=== PATIENT | male | born 1950 | race Hispanic/Latino ===

== ENCOUNTER 2017-06-07 09:11 | Day surgery (SDC) | payer BC ==
[~2017-06-07 09:11] MED LIST: ANCEF/STERILE WATER 2 GM/20 ML IV NR
[2017-06-07] MEDS ORDERED: XYLOCAINE MPF 2% ONE (10:45)
[2017-06-07] MEDS ORDERED: SUBLIMAZE ONE (10:46)
[2017-06-07] MEDS ORDERED: DIPRIVAN 10 MG/ML IV ONE (10:46)
[2017-06-07] MEDS ORDERED: ZOFRAN IV PRN (10:48)
[2017-06-07] MEDS ORDERED: DILAUDID IV PRN (10:48)
--- NOTE | 2017-06-07 10:48 | Anesthesia Consultation ---
Anesthesia Consult and Med Hx Date of service: 06/07/17 - Airway Anesthetic Teeth Evaluation: Good ROM Head & Neck: Adequate Mental/Hyoid Distance: Adequate Mallampati Class: Class II Intubation Access Assessment: Probably Good - Pulmonary Exam CTA: Yes - Cardiac Exam Cardiac Exam: RRR - Pre-Operative Health Status ASA Pre-Surgery Classification: ASA3 Proposed Anesthetic Plan: General - Pulmonary Hx Smoking: Yes (DIPS TOBACCO NOW) Hx Sleep Apnea: Yes (DX SLEEP APNEA , NO CPAP) - Cardiovascular System Hx Hypertension: Yes (X 45 YRS) - Central Nervous System Hx Back Pain: Yes - Endocrine Hx Insulin Dependent Diabetes: Yes - Other Systems Hx Cancer: No Hx Obesity: Yes
--- NOTE | 2017-06-07 10:49 | Anesthesia Day of Surgery ---
Anesthesia Day of Surgery - Day of Surgery Patient Examined: Yes Patient H&P Reviewed: Yes Patient is NPO: Yes
[2017-06-07] MEDS ORDERED: VERSED IV NR (11:00)
[2017-06-07] MEDS ORDERED: NACL 0.9% 1000 ML 1,000 ML IV SCH (11:00)
[2017-06-07] MEDS ORDERED: PEPCID PO NR (11:00)
[2017-06-07] MEDS ORDERED: XYLOCAINE 1%/ EPI 1:100,000 INFILTRATI ONE ×2 (12:22→12:35)
[2017-06-07] MEDS ORDERED: MARCAINE 0.25% INFILTRATI ONE ×2 (12:22→12:55)
[2017-06-07] MEDS ORDERED: NACL 0.9% IR ONE (12:36)
[2017-06-07] MEDS ORDERED: ZOFRAN ONE (12:54)
--- NOTE | 2017-06-07 13:08 | Short Stay Summary ---
Short Stay Documentation Date of service: 06/07/17 - Allergies and Medications Current Medications: Allergies No Known Allergies Allergy (Verified 06/01/17 13:38) Home Medications Medication Instructions Recorded Confirmed Last Taken Type Aspirin [Adult Low Dose Aspirin EC] 81 mg PO DAILY 06/01/17 06/07/17 06/01/17 06 :00 History Dexlansoprazole [Dexilant] 60 mg PO QDAY 06/01/17 06/07/17 06/06/17 06:00 History Dicyclomine [Bentyl] 10 mg PO QID PRN 06/01/17 06/07/17 06/06/17 19:00 History Ferrous Gluconate [Fergon 325 MG 325 mg PO QDAY 06/01/17 06/07/17 06/06/17 19: 00 History tab] Hydrochlorothiazide [Hctz] 12.5 mg PO QDAY 06/01/17 06/07/17 06/06/17 06:00 History Insulin Glargine [Lantus] 50 unit SUB-Q QHS 06/01/17 06/07/17 06/05/17 19:00 History Insulin NPH/Regular [Novolin 70/30] 1 unit SUB-Q TID 06/01/17 06/07/17 06/06/17 06:15 History Lactobacillus Acidophilus 1 mg PO DAILY 06/01/17 06/07/17 06/06/17 06:00 History [Acidophilus Probiotic] Lisinopril [Zestril TAB] 40 mg PO QDAY 06/01/17 06/07/17 06/06/17 06:00 History Lovastatin [Altoprev] 40 mg PO QPM 06/01/17 06/07/17 06/06/17 06:00 History Metformin HCl [Glucophage] 1,000 mg PO BID 06/01/17 06/07/17 06/06/17 19:00 History Tamsulosin [Flomax] 0.4 mg PO QDAY 06/01/17 06/07/17 06/06/17 19:00 History Venlafaxine HCl [Venlafaxine HCl 300 mg PO DAILY 06/01/17 06/07/17 06/06/17 19: 00 History ER] amLODIPine [Norvasc] 5 mg PO DAILY 06/01/17 06/07/17 06/06/17 06:00 History glipiZIDE [Glucotrol] 5 mg PO BID 06/01/17 06/07/17 06/06/17 06:00 History Active Medications Cefazolin Sodium (Ancef/Sterile Water 2 Gm/20 Ml) 2 gm IV PREOP NR Stop: 06/07/17 23:59 Famotidine (Pepcid) 20 mg PO PREOP NR Stop: 06/07/17 23:59 Last Admin: 06/07/17 11:32 Dose: 20 mg Hydromorphone HCl (Dilaudid) 0.5 mg IV Q10MIN PRN PRN Reason: Pain , Severe (7-10) Stop: 06/07/17 23:59 Sodium Chloride (Nacl 0.9% 1000 Ml) 1,000 mls @ 75 mls/hr IV DIRECT VITO Last Admin: 06/07/17 11:32 Dose: 75 mls/hr Midazolam HCl (Versed) 2 mg IV PREOP NR Stop: 06/07/17 23:59 Last Admin: 06/07/17 11:33 Dose: 2 mg Short Stay Discharge Plan Activity: no restrictions, advance as tolerated Weight Bearing Status: Full Weight Bearing Diet: regular Wound: keep clean and dry, per your surgeon's advice Additional Instructions: follow DC instruction sheet and start PT tomrrow Follow up with: PRIMARY MD KENA [Primary Care Provider] - 7 Days BC BROUSSARD MD [Staff Physician] - 14 Days
--- NOTE | 2017-06-07 13:33 | Post Anesthesia Evaluation ---
- Post Anesthesia Evaluation Patient Participated: Yes Airway Patent: Yes Stable Respiratory Function: Yes Temp > 96.8F: Yes Pain Manageable: Yes Adequeate Hydration: Yes Anesthesia Complications: No
[2017-06-07 14:06] VITALS: BP 167/82
--- NOTE | 2017-06-07 23:45 | Operative Report ---
PREOPERATIVE DIAGNOSES: 1. Medial meniscus tear of the right knee. 2. Osteoarthritis, right knee joint. POSTOPERATIVE DIAGNOSES: 1. Complex tear, posterior medial meniscus. 2. Chondrocalcinosis of the right knee meniscal tissue and right knee joint. 3. Moderate to severe osteoarthritis, right knee joint with synovial hypertrophy. PROCEDURES PERFORMED: 1. Right knee arthroscopy with partial medial meniscectomy. 2. Partial synovectomy with debridement. COMPLICATIONS: None. BLOOD LOSS: Minimal. SURGEON: Nikolas White MD FRUIT PICKER: Zack Nelson, operative tech. BRIEF HISTORY: The patient is a 66-year-old man, had a painful right knee, failed conservative treatment, opted for surgical intervention. Risk and benefit discussed, informed consent obtained, and brought to the hospital for the above procedure. DETAILS OF THE OPERATIVE REPORT: The patient was taken to the operating room. After smooth general endotracheal anesthesia, all the bony prominences carefully padded, placed supine on the operating table. Thigh tourniquet placed. Right knee and right lower extremity prepped and draped in sterile fashion. Leg elevated, tourniquet inflated to 300 mmHg. A high lateral portal was created. Before the portal sites were created, portal sites were infiltrated with 1% lidocaine with epinephrine. High lateral portal was created. Arthroscope introduced. Diagnostic arthroscopy was performed. The patient had significant amount of scar tissue, which was encountered during the high lateral portal. Thick amount of scar tissue seemed to be found during the incision. Under direct visualization, direct medial portal was created. Using synovial resector and biters necessary, partial medial meniscectomy performed. There was a complex type of tear pattern noticed around the posterior horn of the medial meniscus, and this was partial medial meniscectomy performed in the posterior horn, only about 10% of this was removed from the remnant which was there. There was significant amount of calcium deposits seen into the meniscal remnants and meniscus tissue and signs of chondrocalcinosis present. Significant amount of arthritis encountered around the medial femoral condyle and the loose cartilage floating pieces as well, which was debrided and suctioned off as well. Necessary partial synovectomy performed. Stable meniscal rim was achieved on the medial side. Partial tear, ACL was stable as well. ARTHROSCOPIC FINDINGS: Once the necessary partial medial meniscectomy, partial synovectomy, debridement was performed, fluid was evacuated and portal sites infiltrated and closed with 3-0 nylon interrupted sutures and infiltrated with 0.25% plain Marcaine, 3 mL in each portal. Dressing was done with Xeroform, 4 x 4s, ABD, cast padding, Vic wrap. The patient tolerated the procedure well, shifted to recovery room in stable condition. Sponge and needle count was correct. Arthroscopic finding, lateral gutter, loose floating cartilage pieces and synovial tissue. Patella grade 4 osteoarthritic changes about 30%-40%, grade 3 about 30%-40%. Trochlea grade 4 osteoarthritic changes about 50%-60%, grade 3 about 20%-30%. Medial femoral condyle, grade 4 osteoarthritic changes about 70%, grade 3 about 20%-30%. Medial tibial plateau, grade 3 was 60%, grade 4 about 20%-30%. Medial ACL chronic partial tear was intact though stable. PCL intact. Lateral meniscus intact, lateral femoral condyle shows osteoarthritic changes of about 50%-60% grade 4, grade 3 about 30%-40%. Lateral tibial plateau, grade 3 about 70%, grade 4 about 10%-20%. Lateral meniscus previous signs of partial meniscectomy with chondrocalcinosis, calcium deposits throughout in her knee. Necessary debridement was performed as well. Partial synovectomy was done. The patient tolerated the procedure well, shifted to recovery room in stable condition. Sponge and needle count was correct. JOB# [id number] SK/VY
== END 2017-06-07 14:35 | disposition home or self-care (01) ==
LOC: OR 09:11
PROVIDERS: ATTEND Orthopaedic Surgery
DX: S83.231A Complex tear of medial meniscus, current injury, right knee, initial encounter (principal); X58.XXXA Exposure to other specified factors, initial encounter; M17.11 Unilateral primary osteoarthritis, right knee; M11.261 Other chondrocalcinosis, right knee; M67.261 Synovial hypertrophy, not elsewhere classified, right lower leg; F17.290 Nicotine dependence, other tobacco product, uncomplicated; I10 Essential (primary) hypertension; E11.9 Type 2 diabetes mellitus without complications; G47.33 Obstructive sleep apnea (adult) (pediatric); K21.9 Gastro-esophageal reflux disease without esophagitis; I25.10 Atherosclerotic heart disease of native coronary artery without angina pectoris; E78.5 Hyperlipidemia, unspecified; E66.9 Obesity, unspecified; Z68.30 Body mass index [BMI] 30.0-30.9, adult; Z79.899 Other long term (current) drug therapy; Z79.82 Long term (current) use of aspirin; Z79.4 Long term (current) use of insulin; Z98.890 Other specified postprocedural states; Z72.89 Other problems related to lifestyle
CPT/HCPCS: 29881; 36415; 82962; 84132; A4217; J0690; J2250; J2405; J2704; J3010; J7030; J1815

== ENCOUNTER 2018-04-25 09:52 | Outpatient (CLI) | payer BC ==
[2018-04-25 10:21] LABS: Basophils % (Auto) 0.6 % (0.0-1.8); Eosinophils # (Auto) 0.1 K/mm3 (0.0-0.4); Eosinophils % (Auto) 2.2 % (0.0-4.3); Hematocrit 29.4 % (35.5-45.6); Hemoglobin 10.1 gm/dl (11.8-15.2); Lymphocytes # (Auto) 1.2 K/mm3 (1.2-5.4); Lymphocytes % (Auto) 19.3 % (13.4-35.0); Mean Corpuscular HGB Conc 34 % (32-34); Mean Corpuscular Hemoglobin 30 pg (28-32); Mean Corpuscular Volume 87 fl (84-94); Monocytes # (Auto) 0.4 K/mm3 (0.0-0.8); Monocytes % (Auto) 5.8 % (0.0-7.3); Platelet Count 226 K/mm3 (140-440); Red Blood Count 3.38 M/mm3 (3.65-5.03); Red Cell Distribution Width 14.4 % (13.2-15.2)
[2018-04-25 10:33] LABS: Erythrocyte Sedimentation Rate 48 mm/Hr (0-20)
== END 2018-04-25 09:53 | disposition home or self-care (01) ==
LOC: LAB 09:52
PROVIDERS: ATTEND Orthopaedic Surgery
DX: Z48.89 Encounter for other specified surgical aftercare (principal)
CPT/HCPCS: 36415; 85025; 85652; 86140

== ENCOUNTER 2018-04-26 11:16 | Outpatient (CLI) | payer BC ==
[2018-04-26 11:51] LABS: Basophils % (Auto) 0.4 % (0.0-1.8); Eosinophils # (Auto) 0.1 K/mm3 (0.0-0.4); Eosinophils % (Auto) 1.6 % (0.0-4.3); Hematocrit 33.3 % (35.5-45.6); Hemoglobin 11.3 gm/dl (11.8-15.2); Lymphocytes # (Auto) 0.9 K/mm3 (1.2-5.4); Mean Corpuscular HGB Conc 34 % (32-34); Mean Corpuscular Hemoglobin 29 pg (28-32); Mean Corpuscular Volume 87 fl (84-94); Monocytes # (Auto) 0.3 K/mm3 (0.0-0.8); Monocytes % (Auto) 6.1 % (0.0-7.3); Platelet Count 243 K/mm3 (140-440); Red Blood Count 3.83 M/mm3 (3.65-5.03); Red Cell Distribution Width 14.4 % (13.2-15.2)
[2018-04-26 11:54] LABS: Bacteria,Urine 1+ /HPF (Negative); Bilirubin,Urine NEG (Negative); Blood,Urine NEG (Negative); Color,Urine Yellow (Yellow); Hyaline Casts,Urine 3 /LPF; Mucus,Urine FEW /HPF; Urobilinogen,Urine < 2.0 mg/dL (<2.0)
[2018-04-26 11:56] LABS: Protein,Urine >500 mg/dL (Negative)
[2018-04-26 11:57] LABS: INR 0.92 (0.87-1.13); Partial Thromboplastin Time 25.5 Sec. (24.2-36.6)
[2018-04-26 12:09] LABS: Albumin 4.3 g/dL (3.9-5); Calcium 10.2 mg/dL (8.4-10.2)
== END 2018-04-26 11:17 | disposition home or self-care (01) ==
LOC: LAB 11:16
PROVIDERS: ATTEND Orthopaedic Surgery
DX: M24.661 Ankylosis, right knee (principal); E11.9 Type 2 diabetes mellitus without complications; R30.0 Dysuria
CPT/HCPCS: 36415; 80053; 81001; 85025; 85610; 85730; 87086

== ENCOUNTER 2018-05-01 07:30 | Day surgery (SDC) | payer BC ==
[2018-05-01] MEDS ORDERED: ZOFRAN IV PRN (07:52)
[2018-05-01] MEDS ORDERED: LACTATED RINGERS 1,000 ML IV SCH (08:00)
[2018-05-01] MEDS ORDERED: VERSED IV NR (08:00)
[2018-05-01] MEDS ORDERED: NACL BACTERIOSTATIC INFILTRATI ONE (08:23)
[2018-05-01] MEDS ORDERED: ANCEF/STERILE WATER 2 GM/20 ML IV NR (09:00)
[2018-05-01] MEDS ORDERED: NEURONTIN ONE (09:14)
[2018-05-01] MEDS ORDERED: DIPRIVAN 10 MG/ML IV ONE (09:16)
[2018-05-01] MEDS ORDERED: XYLOCAINE MPF 2% ONE (09:55)
[2018-05-01] MEDS ORDERED: DILAUDID ONE (09:55)
--- NOTE | 2018-05-01 10:30 | Short Stay Summary ---
Short Stay Documentation - Allergies and Medications Current Medications: Allergies No Known Allergies Allergy (Verified 06/01/17 13:38) Home Medications Medication Instructions Recorded Confirmed Last Taken Type Aspirin [Adult Low Dose Aspirin EC] 81 mg PO DAILY 06/01/17 04/25/18 04/30/18 History Ferrous Gluconate [Fergon 325 MG 325 mg PO QDAY 06/01/17 04/25/18 04/30/18 History tab] Insulin Glargine [Lantus] 50 unit SUB-Q QHS 06/01/17 05/01/18 04/30/18 19:00 History 40 UNITS Insulin NPH/Regular [Novolin 70/30] 1 unit SUB-Q TID 06/01/17 05/01/18 04/28/18 History Lactobacillus Acidophilus 1 mg PO DAILY 06/01/17 04/25/18 04/30/18 History [Acidophilus Probiotic] Lisinopril [Zestril TAB] 10 mg PO QDAY 06/01/17 05/01/18 05/01/18 06:30 History Lovastatin [Altoprev] 40 mg PO QPM 06/01/17 04/25/18 04/30/18 History Metformin HCl [Glucophage] 1,000 mg PO BID 06/01/17 04/25/18 04/30/18 19:00 History Tamsulosin [Flomax] 0.4 mg PO QDAY 06/01/17 04/25/18 04/30/18 History Duloxetine HCl 80 mg PO DAILY 04/26/18 04/26/18 04/30/18 History Active Medications Cefazolin Sodium (Ancef/Sterile Water 2 Gm/20 Ml) 2 gm IV PREOP NR Stop: 05/01/18 12:00 Hydromorphone HCl (Dilaudid) 0.5 mg IV Q10MIN PRN PRN Reason: Pain , Severe (7-10) Stop: 05/01/18 13:00 Lactated Ringer's (Lactated Ringers) 1,000 mls @ 100 mls/hr IV DIRECT VITO Last Admin: 05/01/18 08:52 Dose: 100 mls/hr Midazolam HCl (Versed) 2 mg IV PREOP NR Stop: 05/01/18 23:59 Last Admin: 05/01/18 09:09 Dose: 1 mg Ondansetron HCl (Zofran) 4 mg IV ONCE PRN PRN Reason: Nausea And Vomiting Stop: 05/01/18 13:00 Short Stay Discharge Plan Activity: no restrictions, advance as tolerated, fall precautions Weight Bearing Status: Weight Bear as Tolerated Diet: other (resume previous diet when tolerated) Wound: keep clean and dry, remove dressing (after 2 days and repply bandaid) Special Instructions: physical therapy, occupational therapy Additional Instructions: start PT ian FOR STRAIGHT 10 DAYS AND THEN 4 TIMES A WEEK FOR 6 WEEKS ICE pacs right knee 20 min at a time, 4-5 times a day atleast Pain meds PRN HOME CPM 0-120 DEG 8-10 HOURS A DAY ROM EXERCISES OF KNEE BEDSIDE, WHEN NOT IN CPM. START CPM TODAY Follow up with: DELMIS CORTEZ MD [Primary Care Provider] - 7 Days BC BROUSSARD MD [Staff Physician] - 7 Days
[2018-05-01] MEDS ORDERED: ZOFRAN ONE (10:39)
[2018-05-01] MEDS ORDERED: ZEMURON IV ONE (10:40)
[2018-05-01] MEDS: DILAUDID IV PRN ×2 (10:55→11:05)
--- NOTE | 2018-05-01 11:04 | XRay Report ---
RIGHT KNEE, 3 views: History: Right knee manipulation, right knee stiffness No comparison. Previous right knee arthroplasty changes are evident. The hardware appears well applied. There is no evidence for fracture or loosening. No bone lesion. Small joint effusion is suspected on the lateral image. IMPRESSION: Stable appearance of the right knee prosthesis. Small joint effusion.
[2018-05-01] MEDS ORDERED: PERCOCET 5/325 PO PRN (11:30)
--- NOTE | 2018-05-01 12:25 | Anesthesia Day of Surgery ---
Anesthesia Day of Surgery - Day of Surgery Patient Examined: Yes Patient H&P Reviewed: Yes Patient is NPO: Yes
--- NOTE | 2018-05-01 12:26 | Anesthesia Consultation ---
Anesthesia Consult and Med Hx Date of service: 05/01/18 - Airway Anesthetic Teeth Evaluation: Edentulous ROM Head & Neck: Adequate Mental/Hyoid Distance: Adequate Mallampati Class: Class II Intubation Access Assessment: Probably Good - Pulmonary Exam CTA: Yes - Cardiac Exam Cardiac Exam: RRR - Pre-Operative Health Status ASA Pre-Surgery Classification: ASA3 Proposed Anesthetic Plan: General - Pulmonary Hx Smoking: Yes (DIPS TOBACCO NOW) Hx Respiratory Symptoms: No Hx Sleep Apnea: Yes (DX SLEEP APNEA , NO CPAP) - Cardiovascular System Hx Hypertension: Yes (X 45 YRS) Hx Coronary Artery Disease: No Hx Heart Attack/AMI: No Hx Angina: No - Central Nervous System Hx Neuromuscular Disorder: No Hx Back Pain: Yes (CHRONIC) - Gastrointestinal Hx Gastroesophageal Reflux Disease: No - Endocrine Hx Renal Disease: No (CKD 3 per patient) Hx Insulin Dependent Diabetes: Yes (FBS 126 g/dl) - Other Systems Hx Cancer: No Hx Obesity: Yes - Additional Comments Anesthesia Medical History Comments: No GAC, No FHAC
[2018-05-01 14:29] LABS: Total Cells Counted 100 /mm3
--- NOTE | 2018-05-01 16:11 | Operative Report ---
PROCEDURES PERFORMED: 1. Right knee joint aspiration. 2. Manipulation of the right knee under anesthesia. BLOOD LOSS: Very minimal to none. COMPLICATIONS: None. SURGEON: Nikolas White MD BUILD AND DEPLOYMENT ENGINEER: Zack Nelson, operative tech. BRIEF HISTORY: ____ the right knee and also has significant arthrofibrosis of the knee and stiffness about status post total knee replacement, elected for aspiration of the knee and rule out infection and also for manipulation of the right knee under anesthesia for better knee bending and range of motion exercises. DETAILS OF THE PROCEDURE: The patient was taken to the operating room. After smooth general endotracheal anesthesia, all the bony prominences were carefully padded, placed supine on the operating table. Right knee was prepped and cleaned with alcohol and chlorhexidine and ChloraPrep stick. After anesthesia and operative timeout out was performed, the patient was given antibiotic, a gram of Ancef. The patient's right knee was aspirated from supralateral aspect using 18 gauge 1-1/2 inch needle and the joint fluid was aspirated and was sent for analysis for cell count with differential, aerobic and anaerobic culture. The fluid did not look any infected; however, we sent it for testing. Redressing was done after the manipulation was commenced. Pre-manipulation extension and flexion views were taken, flexion was only up to 65-70 degrees maximum. We did the manipulation in a gradual controlled fashion, putting the right leg ____ and holding the distal thigh with 2 ends and keeping the ears close to the knee in gradually controlled fashion bending the knee and we were able to supervisor joiners to 145 and 130 degrees at least without any complications. There was almost full extension. Next, the pictures were taken after manipulation. Pictures were placed. X-rays were done intraoperatively. There were no complication. Ice packs were applied and the patient was shifted to the recovery room in stable condition. The sponge and needle counts were correct. JOB# [id number] TONY/VY
[2018-05-01 18:05] VITALS: BP 158/84
== END 2018-05-01 12:20 | disposition home or self-care (01) ==
LOC: OR 07:30
PROVIDERS: ATTEND Orthopaedic Surgery
DX: M24.661 Ankylosis, right knee (principal); I10 Essential (primary) hypertension; G47.30 Sleep apnea, unspecified; E78.00 Pure hypercholesterolemia, unspecified; K58.9 Irritable bowel syndrome, unspecified; K21.9 Gastro-esophageal reflux disease without esophagitis; E11.9 Type 2 diabetes mellitus without complications; G47.33 Obstructive sleep apnea (adult) (pediatric); F17.290 Nicotine dependence, other tobacco product, uncomplicated; E66.9 Obesity, unspecified; Z68.30 Body mass index [BMI] 30.0-30.9, adult; Z79.82 Long term (current) use of aspirin; Z79.899 Other long term (current) drug therapy; Z79.4 Long term (current) use of insulin; Z79.84 Long term (current) use of oral hypoglycemic drugs; Z96.651 Presence of right artificial knee joint; Z72.89 Other problems related to lifestyle; Z98.890 Other specified postprocedural states
CPT/HCPCS: 27570; 36415; 73560; 82962; 84132; 87116; 89051; J0690; J1170; J2250; J2405; J2704; J7120